=== PATIENT | male | born 1975 | race Asian ===

== ENCOUNTER 2024-08-13 14:07 | Emergency (ER) | payer BC ==
[2024-08-13 14:25] VITALS: TEMP 98; BMI 26.6
[2024-08-13 15:43] LABS: ABSOLUTE IMMATURE GRANULOCYTES 0.05 x10^3/uL (0.0-0.031); BASOPHILS # 0.05 x10^3/uL (0.01-0.08); EOSINOPHIL % 1.6 % (0.8-7.0); EOSINOPHILS # 0.23 x10^3/uL (0.04-0.54); HEMATOCRIT 43.6 % (40.1-51.0); HEMOGLOBIN 14.2 g/dL (13.7-17.5); MCHC 32.6 g/dl (32.3-36.5); MEAN CELL VOLUME 87.7 fl (79.0-92.2); MONOCYTE # 0.62 x10^3/uL (0.30-0.82); MONOCYTE % 4.4 % (5.3-12.2); PLATELET COUNT 232 x10^3/uL (163-337); RDW 12.3 % (12.1-15.9)
[2024-08-13] MEDS: SODIUM CHLORIDE 0.9% 1000 ML INFUS.BAG IV ONE (15:58)
[2024-08-13 16:04] LABS: POTASSIUM 4.2 mmol/L (3.5-5.1)
[2024-08-13 16:05] LABS: ALBUMIN 3.4 g/dl (3.4-5.0); CALCIUM 9.3 mg/dL (8.5-10.1)
[2024-08-13 16:09] LABS: CREATININE 1.2 mg/dL (0.55-1.3)
[2024-08-13 16:10] LABS: BILIRUBIN,TOTAL 0.5 mg/dL (0.2-1); TOT PROT 6.5 g/dl (6.4-8.2)
[2024-08-13 16:15] VITALS: BP 141/93; PULSE 74; RESP 20
== END 2024-08-13 19:09 | disposition home or self-care (01) ==
LOC: JER 14:07
DX: R55 Syncope and collapse (principal); R42 Dizziness and giddiness; T44.7X5A Adverse effect of beta-adrenoreceptor antagonists, initial encounter
CPT/HCPCS: 36415; 71045-TC-FY; 80053; 84484; 85025; 93005; 93010; 93308; 99285-25